=== PATIENT | male | born 1985 | race Caucasian/White ===

== ENCOUNTER 2022-06-19 04:31 | Inpatient (IN) | payer OTHER, SELFPAY ==
[2022-06-19] VITALS (86 sets, daily range): BP systolic 98–131; BP diastolic 53–93; PULSE 53–96; RESP 10–26; TEMP 36.4–37.6; O2SAT 96–100
--- NOTE | 2022-06-19 04:30 | RT.EKG_ITS ---
APPROVED REPORT Exam: Resting ECG Reason for Exam: chest pain Patient Location: E HR:68 bpm ECG Measurements Heart Rate 68 AXIS IL 151 P 40 QRSd 93 QRS 32 QT 389 T 47 QTc 413 Conclusion Sinus rhythm...normal P axis, V-rate 60- 99 Lateral infarct, acute...ST >.10mV, V5 V6 I [address] elevation, consider inferior injury...ST >0.08mV, II III aVF NSR @ 68 Normal [place] Normal Interval Not a great baseline, ST elevation is present but inconsistent due to baseline and looks more early r epolarization then infarct.
--- NOTE | 2022-06-19 04:33 | W.ED.GENAD ---
Discharge Plan Disposition Patient Disposition: [facility] INPATIENT Condition: Stable Discharge Details Clinical Impression: Acute non-ST elevation myocardial infarction (NSTEMI) Admit Date/Time: 06/19/22 07:57 Admit Provider: Khang Ng Attending Provider: Khang Ng Primary Care Provider: Jacqueline Lara ED Provider: Jay Valentine Discharge Data Discharge Date/Time-TO BE ENTERED AT DEPARTURE: 06/19/22 14:41 Medical Decision Making Patient presenting to the ED with left-sided chest pain which radiates to shoulders and back. Woke him up around 3 AM and if anything is become worse. Describes the pain as sharp. Exam remarkable for diaphoresis and appears a little pale. Lungs are clear. Heart is regular rate and rhythm without murmur and good pulses present. EKG is sinus rhythm with normal axis and intervals. Baseline a little off. Does appear to be some slight ST elevation more consistent with early repolarization and acute ME. It is also not consistent across the lead. Repeat EKG 15 minutes later essentially unchanged. Patient ordered for fluids, sublingual nitroglycerin, aspirin, ondansetron. Portable chest x-ray labs obtained. Patient improved with sublingual nitroglycerin. IV nitroglycerin drip ordered. Laboratory studies show normal white count hemoglobin. Chemistries are fine. Liver function normal. Troponin positive at 8345. Heparin started. Plavix given. Portable chest x-ray unremarkable. Patient feels much better but still has some chest pain and shoulder pain. Third EKG remains unchanged sinus rhythm with probable repolarization. Given his age, lack of risk factors, ongoing pain, positive troponin feel he is best served at a hospital with a [employer]. I have discussed this with patient and his . Unfortunately, we have called multiple hospitals including [facility], [facility], [facility], [facility], [facility], multiple [facility] all at capacity. Patient's D-dimer came back greater than 1000. CTA of the chest performed. CT negative for PE or other acute thoracic abnormality. Patient's pain at this point is now 0. He remains on nitroglycerin and heparin drip. At this point there are no [facility] tertiary care hospitals accepting NSTEMIs. I have discussed this with patient and . Given that he is currently pain-free we will plan admission here to the ICU in hopes of getting a bed at [facility] or [facility] tomorrow. Lab Data Lab results reviewed: Yes I reviewed the patient's lab results. ECG Data Attestation: I personally reviewed and interpreted this ECG (s) as follows: Prior ECG tracings: not available for review Interpretation: see EKG HPI General Mode of arrival: ambulatory. Date/Time Provider Initiated Documentation: 06/19/22 04:33. Limitations to Documentation: no limitations. Information obtained by: patient. HPI Narrative: Patient presents to the ED with left-sided chest pain that woke him up around 3 AM. He has radiation to both shoulders, upper back, neck. He describes the pain as sharp in nature but it is not pleuritic. He feels a little short of breath, lightheaded, nauseated. He is diaphoretic. Pain is worse with movement to some degree. Denies any specific trauma. Denies fever or cough. Denies leg pain or leg swelling. He has no cardiac risk factors. He has never had pain like this before. It has continued since it woke him up at 3 AM and if anything feels worse. Related Data Allergies Allergy/AdvReac Type Severity Reaction Status Date / Time No Known Allergies Allergy Unverified 06/19/22 05:52 Review of Systems Narrative: 09/12 Review of Systems completed and is negative except as stated above in HPI (Systems reviewed: Const, Eyes, ENT, Resp, CV, GI, , MSK, Skin, Neuro) PFSH All Active Problems Elevated CK (Acute) Elevated troponin I level (Acute) Chest pain (Acute) Medical History No significant past medical history Surgical History No significant past surgical history Family History Mother Atrial fibrillation Reportedly had genetic testing indicating she is a carrier for infiltrative cardiomyopathy Father No problems noted. Social History Smoking/Tobacco Use Status: Never Smoking risk assessment performed?: Yes Alcohol Intake: never Drug use: Never Substance use type: does not use Do you feel safe at home: Yes Do you feel safe in your relationship?: Yes Exam Narrative Exam Narrative: Const: WDWN male in NAD. HEENT: NC/AT. Normal facial exam. Eyes: Normal conjunctiva and sclera. Neck: Supple. Trachea midline. Lungs: Normal respiratory effort. Lungs are clear. Cor: RRR without murmur/gallop. Good radial pulses. No chest wall tenderness. GI: Soft. NT/ND. No guarding or rebound. Neuro: A+O x 3. Normal speech, mentation, gait. Cranial nerves II - XII grossly intact. No gross motor or sensory deficit. Ext: No C/C/E. No calf tenderness. Skin: Warm and diaphoretic, a little pale. Critical Care Time Critical Care Time Critical Care Time: Yes Total Critical Care Time: 60 Attestation: Upon my evaluation, this patient had a high probability of imminent or life-threatening deterioration, which required my direct attention, intervention, and personal management. I have personally provided 60 minutes of critical care time exclusive of time spent on separately billable procedures. Time includes review of laboratory data, radiology results, discussion with consultants, and monitoring for potential decompensation. Interventions were performed as documented above.
--- NOTE | 2022-06-19 04:45 | DI.RAD_ITS ---
Exam(s) XR PORTABLE CHEST AP EXAM: XR PORTABLE CHEST AP CLINICAL HISTORY: CP. TECHNIQUE: 2D digital imaging was performed. COMPARISON: No exams were available for comparison FINDINGS: Single AP portable view. Heart size is upper normal. The mediastinum is not widened. Lungs are clear. No infiltrates nor obvious pleural effusions. IMPRESSION: No acute pulmonary findings on this single AP portable view of the chest. DATA REPOSITORY: RADIATION DOSE DELIVERED: All CT scans at this facility use at least one of these dose optimization techniques: automated exposure control; mA and/or kV adjustment per patient size (includes targeted e xams where dose is matched to clinical indication); or iterative reconstruction.
--- NOTE | 2022-06-19 04:45 | RT.EKG_ITS ---
APPROVED REPORT Exam: Resting ECG Reason for Exam: CHEST PAIN Patient Location: E HR:73 bpm ECG Measurements Heart Rate 73 AXIS DE 155 P 28 QRSd 105 QRS 12 QT 381 T 36 QTc 421 Conclusion Sinus rhythm...normal P axis, V-rate 60- 99 ST elev, probable normal early repol pattern...ST elevation, age<55 NSR @ 73 Normal [place] Normal Interval Again not great baseline and inconsistent mild ST elevations present, consistent with early repolariz ation and no significant changes compared to one 15 minutes earlier
[2022-06-19] MEDS: Aspirin 81 MG CHEW 324 MG CH (04:57)
[2022-06-19] MEDS: nitroGLYcerin 0.4 MG TAB (04:58)
[2022-06-19 05:10] LABS: Abs Immature Grans 0.02 10^3/uL (0.0-0.06); Absolute Basophil Count 0.06 10^3/uL (0.0-0.2); Absolute Eosinophil Count 0.32 10^3/uL (0.0-0.7); Absolute Lymphocyte Count 1.36 10^3/uL (1.2-3.4); Absolute Monocyte Count 0.99 10^3/uL (0.1-0.8); Absolute Neutrophil Count 6.69 10^3/uL (1.2-6.7); Basophils % 0.6; Eosinophils % 3.4; HCT 47.9 % (40.0-50.0); HGB 16.2 g/dL (13.5-17.5); Immature Grans % 0.2; Lymphocytes % 14.4; MCH 27.7 pg (27.0-33.0); MCHC 33.8 % (32.0-36.0); MCV 82 fL (80-95); MPV 10.1 fL (8.0-11.0); Monocytes % 10.5; Neutrophils % 70.9; Platelet Count 147 10^3/uL (130-400); RBC 5.84 10^6/uL (4.36-5.78); RDW 12.6 % (11.8-14.1); RDW-SD 37.6 fL; WBC 9.44 10^3/uL (4.4-10.8)
[2022-06-19 05:28] LABS: PTT Activated 27.8 sec (21.0-27.5); Prothrombin Time 9.9 sec (9.3-11.0)
[2022-06-19 05:35] LABS: ALT 62 U/L (16-63); AST 53 U/L (15-37); Alkaline Phosphatase 73 U/L (46-116); Anion Gap 8.7 mmol/L (3-11); BUN 14 mg/dL (7-18); Bilirubin, Total 0.9 mg/dL (0.2-1.0); CO2 26.3 mmol/L (21.0-32.0); Calcium 8.6 mg/dL (8.5-10.1); Chloride 104 mmol/L (98-107); Glucose 126 mg/dL (74-106); Magnesium 1.9 mg/dL (1.8-2.4); Potassium 3.9 mmol/L (3.5-5.1); Sodium 139 mmol/L (136-145); Total Protein 7.2 g/dL (6.4-8.2)
[2022-06-19 05:36] LABS: Troponin I 8345 ng/L (<or=60)
[2022-06-19] MEDS: nitroGLYcerin in D5W 50 MG/250 ML BTL IV (05:42)
--- NOTE | 2022-06-19 05:45 | RT.EKG_ITS ---
APPROVED REPORT Exam: Resting ECG Reason for Exam: chest pain Patient Location: E HR:70 bpm ECG Measurements Heart Rate 70 AXIS NM 151 P 28 QRSd 105 QRS 3 QT 394 T 17 QTc 427 Conclusion Sinus rhythm...normal P axis, V-rate 60- 99 Normal axis/interval. Appropriate baseline and no evidence of ST changes
--- NOTE | 2022-06-19 05:49 | DI.VRAD_ITS ---
PROCEDURE INFORMATION: Exam: XR Chest Exam date and time: 06/19/2022 5:12 AM Age: 36 years old Clinical indication: Chest wall pain; Additional info: Chest pain TECHNIQUE: Imaging protocol: Radiologic exam of the chest. Views: 1 view. COMPARISON: No relevant prior studies available. FINDINGS: Lungs: Mild chronic interstitial prominence. No consolidation. Pleural spaces: Unremarkable. No pleural effusion. No pneumothorax. Heart/Mediastinum: Unremarkable. No cardiomegaly. Bones/joints: Unremarkable. IMPRESSION: No acute findings. Dictated and Authenticated by: Lionel Chen MD. Ordering:ROEL Thompson MD
[2022-06-19] MEDS: nitroGLYcerin 0.4 MG TAB SL (05:54)
[2022-06-19] MEDS: Clopidogrel 300 MG TAB PO (05:58)
[2022-06-19] MEDS: Ondansetron 4 MG/2 ML VIAL IVP (05:58)
--- NOTE | 2022-06-19 06:30 | DI.CT_ITS ---
Exam(s) CT CHEST PE CTA EXAM: CT CHEST PE CTA CLINICAL HISTORY: CP + DDIMER. TECHNIQUE: Imaging Protocol: CT angiography of the chest was performed using pulmonary embolus brandi col. Multi planar reconstructions were performed. CONTRAST MATERIAL: Intravenous: Omnipaque 350 Contrast volume: 100 cc COMPARISON: No exams were available for comparison FINDINGS: CHEST: PULMONARY ARTERIES: There are no intraluminal filling defects to suggest acute pulmonary emboli. LUNGS: There are no infiltrates nor evidence of pulmonary infarction.. There are no pleural effusions . MEDIASTINUM: There is no hilar nor mediastinal adenopathy. Density in the anterior mediastinum is con sistent with residual thymic tissue. CARDIAC: Heart size is upper normal. There is no pericardial effusion.Caliber of the thoracic aorta is within normal limits. There is no significant shift of the interventricular septum. PARTIALLY VISUALIZED UPPERMOST ABDOMEN: No obvious findings OSSEOUS: No significant osseous lesions.. IMPRESSION: 1. No evidence of acute pulmonary emboli. No evidence of pulmonary infarction.No pleural effusions. 2. No confluent infiltrates. RADIATION DOSE DELIVERED: 505.11mGy.cm Total DLP DATA REPOSITORY: All CT scans at this facility are submitted to the National Radiology Data Registry (NRDR) Dose Index Registry (DIR) with the [employer] (ACR). RADIATION OPTIMIZATION: All CT scans at this facility use at least one of these dose optimization te chniques: automated exposure control; mA and/or kV adjustment per patient size (includes targeted exa ms where dose is matched to clinical indication); or iterative reconstruction.
[2022-06-19 06:43] LABS: D-Dimer 1212 ng/mlFEU (<500)
[2022-06-19 07:08] LABS: Source Nasal/Nares
--- NOTE | 2022-06-19 07:15 | PDOC.ERCMPRO ---
- If Service Date Differs Date of service: 06/19/22 Time of Service: 07:15 Care Management Progress Note SBIRT screen negative. No alcohol, nicotine, substance use or mental health symptoms reported.
--- NOTE | 2022-06-19 07:16 | DI.VRAD_ITS ---
PROCEDURE INFORMATION: Exam: CTA Chest With Contrast Exam date and time: 06/19/2022 6:19 AM Age: 36 years old Clinical indication: Chest wall pain; Additional info: Cp +ddimer TECHNIQUE: Imaging protocol: Computed tomographic angiography of the chest with contrast. 3D rendering (Not supervised by radiologist): MIP and/or 3D reconstructed images were created by the technologist. Radiation optimization: All CT scans at this facility use at least one of these dose optimization techniques: automated exposure control; mA and/or kV adjustment per patient size (includes targeted exams where dose is matched to clinical indication); or iterative reconstruction. Contrast material: OMNI 350; Contrast volume: 100 ml; Contrast route: INTRAVENOUS (IV); COMPARISON: XR PORTABLE CHEST AP 06/19/2022 5:12 AM FINDINGS: Pulmonary arteries: No filling defects in the central, lobar, or proximal segmental pulmonary arteries to suggest pulmonary emboli. Normal caliber main pulmonary artery. Aorta: Normal in caliber. Lungs: There are dependent hypoventilatory changes in both lower lobes. The lungs are otherwise clear and well aerated, without consolidation or mass. The Pleural spaces: No pleural effusion or pneumothorax. Heart: Heart size is normal. No coronary artery calcifications. No pericardial effusion. Mediastinal space: Small amount of residual thymic tissue in the anterior/superior mediastinum, nonspecific. Lymph nodes: Unremarkable. No pathologically enlarged mediastinal, hilar, or axillary lymph nodes. Bones/joints: Unremarkable. No fractures or suspicious osseous lesions. Soft tissues: Unremarkable. Other findings: Visualized upper abdominal structures demonstrate no acute or suspicious abnormality. IMPRESSION: No acute abnormality in the chest. No evidence of pulmonary emboli. Dictated and Authenticated by: Lucille Coffman MD. Ordering:ROEL Thompson MD
--- NOTE | 2022-06-19 07:34 | NUR.NOTE ---
Pt. states to [employer] that string in restroom for call palumbo is too long and someone could hang themselves.Nursing Note:
[2022-06-19 08:10] LABS: COVID-19 PCR Negative (Negative)
[2022-06-19 08:17] LABS: Troponin I 17707 ng/L (<or=60)
--- NOTE | 2022-06-19 09:56 | W.PM.HP.N ---
Date of service: 06/19/22 Time of Service: 09:57 Assessment and Plan Assessment and plan (1) Chest pain: Status: Acute Assessment and plan: Patient's chest pain is atypical and that he has had no exertional component to his chest pain. The acute onset of chest tightness along with the left shoulder discomfort both which were relieved by nitroglycerin have been associated with a significantly elevated troponin I level along with EKG changes that either represent acute pericarditis versus repolarization abnormalities. His EKGs do not look typical for an ST elevation FL and that its diffuse upward sloping ST segments and there is been no progression of his EKGs. What is interesting is the latest EKG taken at 10:59 AM looks totally normal with no repolarization abnormalities whatsoever. I have discussed his case with our local hopper attendant Dr. Lupe Maurer who agrees that the doubling of his troponin I level from 8000-17,000 is significant and the patient deserves a cardiac catheterization. It is hard to piece together the events of the weekend in which she became significantly dehydrated associated with severe muscle aches and headaches and nausea but I suppose he probably became dehydrated enough that he had rhabdomyolysis which could have led to the significantly elevated troponin levels. However his CK levels are only minimally elevated at present but may be on a downward trend. The other possibility raised is that he may have had some atretic or anomolous coronary branch that became occluded d/t hyperviscocity from his dehydratrion and led to and NSTEMI. I favor a diagnosis of an epimyopericarditis or a myocarditis. [facility] in [facility] called to inquire about the patient as Dr. Jay Valentine had reached out to them for transfer to their center. I spoke with Liseth Franklin, nurse practitioner for the cardiology service at [facility]. After she reviewed the case with me she indicated that they would be willing to accept the patient to the service of Dr. Jessica Casanova pending bed availability. She indicated that we should still look at local resources to see if any beds become available closer to home. I did indicate to her that Dr. Kyle already reached out to her local tertiary care centers including [facility] and [facility] neither which were excepting transfers. I updated the patient and his regarding his acceptance at [facility] but also told him that they currently do not have a bed available but will let us know when 1 becomes available. Critical care time spent interviewing and examining the patient, reviewing studies, discussing case with patient's nurse and consulting physicians was 120 minutes (2) Elevated troponin I level: Status: Acute Assessment and plan: As above. (3) Acute non-ST elevation myocardial infarction (NSTEMI): Status: Suspected Assessment and plan: As above, cont. ASA, Plavix, heparin; wean NTG gtt as tolerated and switch to NTG paste. Echo was done and preliminary looks normal; no RWMA (4) Elevated CK: Status: Acute Assessment and plan: probably residual from rhabdomyolysis. History of Present Illness History of Present Illness Chief Complaint: Chest pressure, left arm pain Narrative: This 36-year-old male non-smoker with no chronic medical issues presented emergency department with acute onset of chest tightness and left arm pain and left shoulder pain that awoke him around 3 AM. He took a couple of Advil tablets and try to get back to sleep but when he could not sleep he presented to the emergency department. Time of arrival was 434 this morning. Patient was seen by Dr. Jay Valentine, ED attending who performed a work-up including serial EKGs lab work including serum troponin I levels as well as CT scan and chest x-ray. Chest x-ray showed no acute pulmonary pathology. CT of the chest showed no evidence of pulmonary emboli and no dissection no infiltrates or effusions. Initial EKG was taken at 4:38 AM and showed sinus rhythm rate of 68 bpm normal MS interval 151 ms normal QT interval 389 with normal P wave, QRS, T wave axis. He had peaked T waves across the precordial leads with upward sloping ST segments consistent with early repolarization abnormality. However the computer reading read lateral acute infarct ST elevation consider inferior injury. Upward sloping ST segments appear to be not only across the precordial leads but also across the inferior leads. Second ECG was obtained at 4:53 AM and again showed similar upward sloping ST elevation consistent with early repolarization changes. Third ECG taken at 5:56 AM again showed peaked T waves and upward sloping ST segments although the ST elevation appear to be less prominent. Routine labs including CBC was unremarkable and chemistry profile was remarkable for mildly elevated AST and a glucose of 126 but otherwise normal electrolytes normal renal function. Serial troponin I levels were elevated initially 1 at 4:50 AM was 8300. Repeat 1 now at 7:51 AM is 17,700. Patient was treated emergency department by Dr. Valentine who loaded him with Plavix 300 mg and aspirin 324 mg. He gave him nitroglycerin 0.4 mg which gave partial but incomplete relief and he started on nitroglycerin drip at 10 mcg/min and the patient has been pain-free. Patient was started on a heparin drip at [address] Valentine reports he tried reaching out to area tertiary care centers and reports that none of them would even give him a hopper attendant to discuss potential transfer. They did reach out to [facility], [facility], [facility], [facility], [facility], [facility] all which were at capacity. After you interviewing the patient I received additional information that prior to last night's episode of chest discomfort patient had been working over the weekend building a shed and was out in the heat for over 7 hours on Thursday and became exhausted. On Thursday he was feeling confused had diffuse muscle aches in his limbs and was complaining of headache. He realized by then that he become dehydrated and attempt to rehydrate himself. He slept most of Thursday. He continued to rehydrate over Thursday and Thursday and started feeling better. On Thursday he was feeling well enough that he took some of the materials from his worksite to the local dump. As far as coronary risk factors he denies any smoking history and denies any known history of hypertension or diabetes mellitus or hyperlipidemia. There is no family history of premature coronary artery disease although interestingly his mother who is 64 years old has a history of atrial fibrillation and was tested genetically for some kind of myocardial infiltrative process (? Amyloid) his father is retired and 64 years old and healthy. He has 2 siblings including an older sister is 37 and younger sister is 33 both of which are healthy. Patient does not use any recreational drugs such as amphetamines or cocaine. He does not take any controlled substances and only has used occasional ibuprofen or Advil for aches and pains. He did take a couple of Advil last night when he started having the shoulder and chest discomfort. Review of Systems Constitutional Constitutional: Denies chills and Denies fever(s) Cardiovascular Cardiovascular: Reports system reviewed and no additional complaints, except as documented Respiratory Respiratory: Reports system reviewed and no additional complaints, except as documented PFSH All Active Problems (Updated 06/19/22 @ 12:23 by Khang Ng MD) Elevated CK (Acute) Elevated troponin I level (Acute) Chest pain (Acute) Medical History No significant past medical history Surgical History No significant past surgical history Family History (Updated 06/19/22 @ 10:44 by Khang Ng MD) Mother Atrial fibrillation Reportedly had genetic testing indicating she is a carrier for infiltrative cardiomyopathy Father No problems noted. Social History Smoking/Tobacco Use Status: Never Smoking risk assessment performed?: Yes Alcohol Intake: never Drug use: Never Substance use type: does not use Do you feel safe at home: Yes Do you feel safe in your relationship?: Yes Meds Allergies and Home Medications Allergies Allergy/AdvReac Type Severity Reaction Status Date / Time No Known Allergies Allergy Unverified 06/19/22 05:52 Exam Narrative Exam Narrative: Alert and oriented x4 HEENT: Atraumatic normocephalic, pupils equally round reactive to light and accommodation, extraocular motion intact, TMs intact, nares moist and patent without exudate or bleeding, oropharynx noninjected without exudate, teeth in good repair Neck: Supple, nontender, without thyromegaly or lymphadenopathy or JVD. Normal carotid pulses Lungs: Clear to auscultation and percussion Heart: Regular rate and rhythm without murmur rub or gallop. Normal apical impulse Abdomen: Nondistended, normal bowel sounds, nontender to palpation or percussion, no organomegaly, no bruits, no palpable masses Genitalia and rectal exam: Deferred Extremities: Normal range of motion with normal strength. No peripheral cyanosis or edema. Normal pulses Neurologic: Cranial nerves II through XII grossly within normal limits. Normal strength and sensation over the face trunk and extremities. Results Imaging Chest x-ray: image reviewed CT scan - chest: report reviewed EKG: image reviewed Labs Result diagrams: 06/19/22 04:50 06/19/22 04:50 Labs: Laboratory Results - last 24 hr 06/19/22 06/19/22 06/19/22 04:50 04:50 04:50 WBC 9.44 RBC 5.84 H Hgb 16.2 Hct 47.9 MCV 82 MCH 27.7 MCHC 33.8 RDW 12.6 Plt Count 147 MPV 10.1 Immature Gran % 0.2 Neutrophils % 70.9 Lymphocytes % 14.4 Monocytes % 10.5 Eosinophils % 3.4 Basophils % 0.6 Nucleated RBC % 0.0 Absolute Neutrophils 6.69 Absolute Lymphocytes 1.36 Absolute Monocytes 0.99 H Absolute Eosinophils 0.32 Absolute Basophils 0.06 PT 9.9 INR 1.0 APTT 27.8 H D-Dimer 1212 H Sodium 139 Potassium 3.9 Chloride 104 Carbon Dioxide 26.3 Anion Gap 8.7 BUN 14 Creatinine 1.0 Estimated GFR/1.73 m2 >= 60.00 Glucose 126 H Calcium 8.6 Magnesium 1.9 Total Bilirubin 0.9 AST 53 H ALT 62 Alkaline Phosphatase 73 Troponin I 8345 H* Total Protein 7.2 Albumin 4.0 COVID-19 Source SARS-CoV-2 (PCR) 06/19/22 06/19/22 06:45 07:51 WBC RBC Hgb Hct MCV MCH MCHC RDW Plt Count MPV Immature Gran % Neutrophils % Lymphocytes % Monocytes % Eosinophils % Basophils % Nucleated RBC % Absolute Neutrophils Absolute Lymphocytes Absolute Monocytes Absolute Eosinophils Absolute Basophils PT INR APTT D-Dimer Sodium Potassium Chloride Carbon Dioxide Anion Gap BUN Creatinine Estimated GFR/1.73 m2 Glucose Calcium Magnesium Total Bilirubin AST ALT Alkaline Phosphatase Troponin I 16612 H* Total Protein Albumin COVID-19 Source Nasal/Nares SARS-CoV-2 (PCR) Negative Last Vital Signs Temp 36.4 C L 06/19/22 04:34 Pulse 69 06/19/22 09:15 Resp 15 06/19/22 09:15 BP 105/56 L 06/19/22 09:15 Pulse Ox 98 06/19/22 09:15
--- NOTE | 2022-06-19 10:12 | DI.US_ITS ---
APPROVED REPORT EXAM: Comprehensive 2D, Doppler, and color-flow Echocardiogram Patient Location: In-Patient Room/Bed: [id number] Certified Substance Abuse Counselor: Padma Kumar RDCS (AE) Indications: IL Other Information Study Quality: Adequate. Technically limited study due to inability to position patient exam done sup [facility] bedside icu. Conclusion Normal left ventricular wall thickness and chamber size. Estimated ejection fraction is 55 to 60%. There are no segmental wall motion abnormalities Normal right ventricular size and systolic function Both atria are normal in size Trileaflet aortic valve without stenosis or regurgitation Structurally normal mitral valve, mild regurgitation Normal tricuspid valve with trace regurgitation. Estimated right ventricular systolic pressure is 24 mmHg Wall motion Left Ventricle The left ventricle is normal size. The left ventricular systolic function is normal. The left ventric ular ejection fraction is within the normal range. There is normal left ventricular wall thickness. T here is normal LV segmental wall motion. There is no ventricular septal defect visualized. LVEF is 58 %. Right Ventricle The right ventricle is normal size. The right ventricular systolic function is normal. The RVSP is 24 .1 mmHg. Atria The left atrium size is normal. The right atrium size is normal. The interatrial septum is intact wit h no evidence for an atrial septal defect. Aortic Valve The aortic valve is normal in structure. Aortic valve is trileaflet. There is no aortic valvular sten osis. No aortic regurgitation is present. Mitral Valve The mitral valve is normal in structure. No evidence of mitral valve stenosis. Mild mitral regurgitat ion. Tricuspid Valve The tricuspid valve is normal in structure. There is no tricuspid valve stenosis. Trace tricuspid reg urgitation. Pulmonic Valve The pulmonary valve is normal in structure. There is no pulmonic valvular stenosis. There is no pulmo amparo valvular regurgitation. Great Vessels The aortic root is normal in size. The ascending aorta is normal in size. Aortic arch is normal in ca liber. IVC is normal in size and collapses >50% with inspiration. Pericardium There is no pericardial effusion. 2D Dimensions IVSD d PLAX 1.03 cm M: 0.6-1.2 LV Vol A2C d MOD 146.5 mL LVPW d PLAX 1.03 cm M: 0.6 - 1.2 LV Vol A4C d MOD 183.8 mL LVID d PLAX 5.68 cm M: 4.2 - 5.8 LA vol/ BSA A4C s A-L 25.4 mL/m2 LVDs 3.95 cm M: 2.5 - 4.0 LA Area A4C s MOD 20.37 cm2 Ao Root d 3.38 cm M: 3.1 - 3.7 LV EF A4C MOD 58.3 % RA Area A4C 18.89 cm2 LV EF A2C MOD 58.5 % RA Vol/ BSA A4C s A-L 25.5 mL/m2 LV EF Biplane MOD 56.1 % Ao Asc Diam d 3.18 cm M: 2.6 - 3.4 SV 92.76 mL LV EF Teichholz 57.2 % SV Index 39.40 mL/m2 LVEF (Joe's) 56.06 % M: 52 - 72 LV Volume 117.87 mL M: 62 - 150 LV Volume Index 50.15 mL/m2 M: 34 - 74 LV Vol Biplane MOD 165.5 mL FS 30.40 % M-Mode TAPSE 2.11 cm (M/F) >1.7 LV Diastology MV E' medial 0.103 (>0.07 m/s) E/A Ratio 1.4 LV E/e MED 6.15 (<14) MV E Vmax 0.64 (0.4-1.3 m/s) MV E' lateral 0.113 (>0.1 m/s) MV A Vmax 0.45 (0.4-1.3 m/s) LV E/e LAT 5.65 (<14) MV E/A Ratio 1.33 MV E/E' medial 6.20 MV E/E' lateral 5.66 Aortic Valve LVOT Area 3.59 cm2 AoV Area Vmax 2.83 cm2 LVOT Vmax 0.90 m/s AoV Area/ BSA (Vmax) 1.20 cm2/m2 LVOT Mean Yohannes. 0.58 m/s ARTEMIO Mean Yohannes. 2.51 cm2 LVOT Peak Grad 3.3 mmHg ARTEMIO Mean Yohannes. Index 1.06 cm2/m2 LVOT Mean Grad 1.6 mmHg LVOT VTI 0.226 m LVOT Diam s 2.10 cm AoV Vmax 1.14 m/s Velocity Ratio 0.78 AoV Mean Yohannes. 0.83 m/s AoV Peak Grad 5.2 mmHg LVOT SV 81.36 mL AoV Mean Grad 3.0 mmHg AoV VTI 0.277 m AoV Area VTI 2.94 cm2 AoV Area/ BSA (VTI) 1.25 cm/m2 Mitral Valve MV DT 164 (160-240 msec) MV PHT 47 msec MV Area PHT 4.63 cm2 MV VTI 0.276 m MV Area VTI 2.95 (4.0-6.0 cm2) Pulmonary Valve PV Vmax 0.93 (0.5-1.5 m/s) RVOT Peak Gr. 1.49 mmHg PV Peak Grad 3.5 mmHg RVOT Mean Gr. 0.70 mmHg PV Mean Grad 1.6 mmHg RVOT VTI 0.139 m PV VTI 0.196 m RVOT Vmax 0.61 m/s Tricuspid Valve TR Peak Grad 21.1 mmHg TR Vmax 2.30 m/s RA Pressure 3.00 mmHg RVSP (TR) 24.1 mmHg
--- NOTE | 2022-06-19 10:45 | RT.EKG_ITS ---
APPROVED REPORT Exam: Resting ECG Reason for Exam: INCREASED TROP Patient Location: I HR:59 bpm ECG Measurements Heart Rate 59 AXIS WV 159 P 38 QRSd 110 QRS 14 QT 442 T 27 QTc 438 Conclusion Sinus rhythm...normal P axis, V-rate 50- 99 Normal Electrocardiogram
[2022-06-19 11:03] LABS: Creatine Kinase 770 U/L (39-308); NT-proBNP 1275 pg/mL (<300)
[2022-06-19 11:05] LABS: Troponin I 18124 ng/L (<or=60)
[2022-06-19 12:58] LABS: PTT Activated 33.6 sec (21.0-27.5)
--- NOTE | 2022-06-19 13:41 | CCONE_ITS ---
Date of service: 06/19/22 Time of Service: 13:41 Assessment and Plan Assessment and plan (1) Elevated troponin I level: Status: Acute Assessment and plan: Patient has a markedly elevated troponin, well beyond what might be suspected with an acute myocardial infarction. His EKGs are within normal limits. His echo was normal. Given his history of prolonged physical exertion and suspected dehydration, I think rhabdomyolysis would be the most likely etiology of his enzyme elevation. That being said, he still requires evaluation to ensure that he does not have underlying coronary artery disease. Transfer for cardiac catheterization is appropriate. Follow-up depends on results (2) Elevated CK: Status: Acute History of Present Illness History of Present Illness Chief Complaint: Left shoulder and arm pain Narrative: This is a 36-year-old man who presented to the hospital because of left shoulder and arm pain which had awakened him from sleep. He took a couple of Advil but because of persistent symptoms came to the emergency room. He was found to have a markedly elevated troponin in excess of 8000. He was treated for suspected acute coronary syndrome with heparin intravenous nitroglycerin and became pain- free. His initial electrocardiogram had some degree of respiratory variation suggesting minimal ST elevation in V5 and V6. Subsequent electrocardiograms were normal. He had an echocardiogram performed today which also was within normal limits, no valvular disease normal chamber sizes, normal wall motion Troponins have continued to rise, now greater than 18,000. His CPK was obtained it is 770 Patient has no past history of cardiac illness. He has no specific risk factors for coronary disease. He is a non-smoker, not hypertensive, no known dyslipidemia. Family history is notable for mother with atrial fibrillation and some type of possible infiltrative cardiomyopathy genetic predisposition. Additional history was notable for the fact that the patient was working very hard outdoors over the weekend. He spent more than 7 hours continuously exerting himself on Thursday, Thursday felt poorly and suspected dehydration. He rehydrated and took it a bit easier and had been feeling better until his acute symptoms prompting ER evaluation The case has been discussed extensively with Dr. Short. The patient is in the process of being transferred to [facility] for further evaluation. Currently he is comfortable Review of Systems Cardiovascular Cardiovascular: Reports as per [facility] All Active Problems Elevated CK (Acute) Elevated troponin I level (Acute) Chest pain (Acute) Medical History No significant past medical history Surgical History No significant past surgical history Family History Mother Atrial fibrillation Reportedly had genetic testing indicating she is a carrier for infiltrative cardiomyopathy Father No problems noted. Social History Smoking/Tobacco Use Status: Never Smoking risk assessment performed?: Yes Alcohol Intake: never Drug use: Never Substance use type: does not use Do you feel safe at home: Yes Do you feel safe in your relationship?: Yes Exam Narrative Exam Narrative: Well-developed well-nourished lying in bed. The patient was not examined Results Last Vital Signs Temp 36.8 C 06/19/22 12:10 Pulse 66 06/19/22 12:10 Resp 16 06/19/22 12:10 BP 102/54 L 06/19/22 12:10 Pulse Ox 100 06/19/22 12:10 Labs Result diagrams: 06/19/22 04:50 06/19/22 04:50 Labs: Laboratory Results - last 24 hr 06/19/22 06/19/22 06/19/22 04:50 04:50 04:50 WBC 9.44 RBC 5.84 H Hgb 16.2 Hct 47.9 MCV 82 MCH 27.7 MCHC 33.8 RDW 12.6 Plt Count 147 MPV 10.1 Immature Gran % 0.2 Neutrophils % 70.9 Lymphocytes % 14.4 Monocytes % 10.5 Eosinophils % 3.4 Basophils % 0.6 Nucleated RBC % 0.0 Absolute Neutrophils 6.69 Absolute Lymphocytes 1.36 Absolute Monocytes 0.99 H Absolute Eosinophils 0.32 Absolute Basophils 0.06 PT 9.9 INR 1.0 APTT 27.8 H D-Dimer 1212 H Sodium 139 Potassium 3.9 Chloride 104 Carbon Dioxide 26.3 Anion Gap 8.7 BUN 14 Creatinine 1.0 Estimated GFR/1.73 m2 >= 60.00 Glucose 126 H Calcium 8.6 Magnesium 1.9 Total Bilirubin 0.9 AST 53 H ALT 62 Alkaline Phosphatase 73 Creatine Kinase Troponin I 8345 H* NT-Pro-B Natriuret Pep Total Protein 7.2 Albumin 4.0 COVID-19 Source SARS-CoV-2 (PCR) 06/19/22 06/19/22 06/19/22 06:45 07:51 10:30 WBC RBC Hgb Hct MCV MCH MCHC RDW Plt Count MPV Immature Gran % Neutrophils % Lymphocytes % Monocytes % Eosinophils % Basophils % Nucleated RBC % Absolute Neutrophils Absolute Lymphocytes Absolute Monocytes Absolute Eosinophils Absolute Basophils PT INR APTT D-Dimer Sodium Potassium Chloride Carbon Dioxide Anion Gap BUN Creatinine Estimated GFR/1.73 m2 Glucose Calcium Magnesium Total Bilirubin AST ALT Alkaline Phosphatase Creatine Kinase [place] I [address] H* NT-Pro-B Natriuret Pep Total Protein Albumin COVID-19 Source Nasal/Nares SARS-CoV-2 (PCR) Negative 06/19/22 06/19/22 10:30 12:28 WBC RBC Hgb Hct MCV MCH MCHC RDW Plt Count MPV Immature Gran % Neutrophils % Lymphocytes % Monocytes % Eosinophils % Basophils % Nucleated RBC % Absolute Neutrophils Absolute Lymphocytes Absolute Monocytes Absolute Eosinophils Absolute Basophils PT INR APTT 33.6 H D-Dimer Sodium Potassium Chloride Carbon Dioxide Anion Gap BUN Creatinine Estimated GFR/1.73 m2 Glucose Calcium Magnesium Total Bilirubin AST ALT Alkaline Phosphatase Creatine Kinase 770 H Troponin I [address]00 H* NT-Pro-B Natriuret Pep 1275 H Total Protein Albumin COVID-19 Source SARS-CoV-2 (PCR)
[2022-06-19 14:40] LABS: ESR < 1 mm/hr (0-15)
[2022-06-19 14:40] LABS: C-Reactive Protein 2.13 mg/dL (0.0-0.3); Creatine Kinase 703 U/L (39-308)
[2022-06-19 14:46] LABS: Troponin I 10227 ng/L (<or=60)
--- NOTE | 2022-06-19 15:16 | PHA.REVIEW ---
Pharmacy Admission Review - Admission Clinical Review (Last Reviewed 06/19/22 @ 13:45 by Lupe Maurer MD) Elevated CK (Acute) Elevated troponin I level (Acute) Chest pain (Acute) No Known Allergies Allergy (Unverified 06/19/22 05:52) Resuscitation Status Full Code Height 6 ft 3 in Weight 107.5 kg - Renal Dosing Renal Dosing: BUN 14 mg/dL (7-18) 06/19/22 04:50 Creatinine 1.0 mg/dL (0.70-1.30) 06/19/22 04:50 Medications needing adjustments: N/A (crcl = 123) - Anticoagulation Anticoagulation: Hgb 16.2 g/dL (13.5-17.5) 06/19/22 04:50 Hct 47.9 % (40.0-50.0) 06/19/22 04:50 Plt Count 147 10^3/uL (130-400) 06/19/22 04:50 INR 1.0 (0.9-1.1) 06/19/22 04:50 Creatinine 1.0 mg/dL (0.70-1.30) 06/19/22 04:50 DVT Prophylaxis: Reviewed Medications: Heparin Therapeutic Anticoagulation: Reviewed Medications: Heparin (on heparin drip for suspected NSTEMI. ptt @ 1228 = 33.6 (increased from 1000 units/hr to 1200 units/hr)) - Opiate Usage Evaluate Pain Scale/Pains Meds: N/A - Relevant Labs ESR < 1 mm/hr (0-15) 06/19/22 14:13 Sodium 139 mmol/L (136-145) 06/19/22 04:50 Potassium 3.9 mmol/L (3.5-5.1) 06/19/22 04:50 Chloride 104 mmol/L (98-107) 06/19/22 04:50 Magnesium 1.9 mg/dL (1.8-2.4) 06/19/22 04:50 C-Reactive Protein 2.13 mg/dL (0.0-0.3) H 06/19/22 14:10 Electrolytes, C-Reactive P, ESR: Reviewed - DM Control DM Control: Glucose 126 mg/dL (74-106) H 06/19/22 04:50 Insulin Dosing: N/A - Heart Failure/VA Heart Failure/VA: [place] 35150 ng/L (<or=60) H* 06/19/22 14:10 NT-Pro-B Natriuret Pep 1275 pg/mL (<300) H 06/19/22 10:30 EF%, TORIBIO's, B-Blockers, Diuretics: Reviewed - BP Control BP Control: Blood Pressure [Right Arm] 102/54 Blood Pressure [Right Arm] 106/61 Blood Pressure 102/54 Blood Pressure 107/59 Blood Pressure 102/57 Blood Pressure 106/61 Blood Pressure 105/56 Blood Pressure 101/60 Blood Pressure 100/61 Blood Pressure 104/60 Blood Pressure 100/57 Blood Pressure 101/59 Blood Pressure 104/53 Blood Pressure 107/62 Blood Pressure 114/92 Blood Pressure 104/65 Blood Pressure 106/66 Blood Pressure 109/61 Blood Pressure 101/64 Blood Pressure 101/64 Blood Pressure 98/63 Blood Pressure 106/62 Blood Pressure 110/66 Blood Pressure 110/66 Blood Pressure 108/68 Blood Pressure 111/63 Blood Pressure 114/71 Blood Pressure 131/93 Blood Pressure 123/74 Blood Pressure 115/78 If elevated: N/A - Qtc Review If Elevated: N/A - IV to PO Switch IV Medications: N/A - Home Meds Home Med List reviewed: N/A - Current meds Current Medication Order Review: Reviewed
[2022-06-19] MEDS: Acetaminophen 325 MG TAB PO (16:19)
[2022-06-19 16:20] LABS: Bilirubin Negative (Negative); Blood Negative (Negative); Clarity Clear (Clear); Glucose Negative (Negative); Ketones Negative (Negative); Leukocyte Esterase Negative (Negative); Nitrite Negative (Negative); Urobilinogen 0.2 EU/dL (Up TO 0.2); pH 6.5 (5-8)
--- NOTE | 2022-06-21 18:06 | DSE_ITS ---
Date of service: 06/19/22 Time of Service: 18:00 DS: Diagnosis Discharge Diagnosis (1) Elevated troponin I level: Status: Acute (2) Elevated CK: Status: Acute Discharge Plan Disposition Patient Disposition: [facility] Condition: Stable Discharge Details Reason For Visit: NSTEMI Admit Date/Time: 06/19/22 07:57 Admit Provider: Khang Ng Attending Provider: Khang Ng Primary Care Provider: Jacqueline Lara Hospital Course Hospital Course: 36-year-old male non-smoker with no chronic medical issues presented with acute onset chest tightness and left arm pain and shoulder pain that awoke him at 3 AM. He taken a couple Advil tablets try to get back to sleep when his chest started hurting he presents emergency department around 4:34 AM on 06/19/2022. ECG was remarkable for repolarization abnormalities. Chest x-ray showed no acute pathology CTA of the chest was negative for PE or dissection or pneumonia. Patient was given a couple nitroglycerin tablets and then placed on nitroglycerin drip at which point he was seen complete relief. Serial ECGs were obtained. Serial troponin levels were checked and found to be elevated with initial troponin level of 8300 and a couple hours later it went to 17,000 and finally peaked at 18,006 hours after admission. It finally declined late in the afternoon on 06/19/2022 and was down to 10,000. Patient was given dual antiplatelet therapy including aspirin and Plavix. Multiple tertiary care centers were called and none had bed availability for transfer and because it was considered in NSTEMI they did not feel the need for urgent transfer. When I took over his care I started making further calls to tertiary care centers including [facility] and also [facility] in [place]. [facility] actually reach out to me in response to the initial call that was placed by our emergency department.[facility] graciously accepted the patient but could not offer a bed immediately but put him on a list for earliest transfer possible. I consulted with our local certified adaptive physical educator Dr. Lupe Maurer who reviewed the case as well as his echocardiogram and indicated that his echocardiogram was normal. She felt that this may be musculoskeletal and not cardiac in origin. This is based on the fact that his chest pain episode had been preceded by a weekend of extreme exertion out in the heat becoming dehydrated. That had been associated over the weekend prior to admission with severe muscle aches and headaches and nausea and vomiting. Furthermore when I checked a CK level was found to be elevated at 770. Echocardiogram was performed and read by Dr. Maurer as being normal. His LVEF is 55 to 60% with no wall motion abnormalities and no valvular abnormalities. I reached out to [facility] and spoke with Dr. Lowe one of the cardiology fellows at [facility] and after review of the case they agreed except the patient and put him on a list for earliest transfer to the service of Dr. Jose Carlos Hamlin. Later in the early evening hours on 06/19/2022 patient was transferred in hemodynamically stable condition and was pain-free on the nitroglycerin drip and heparin drip. He went via ambulance with instrument mechanic weapons system crew on board. Discharge Instructions Activity:: Activity as Tolerated Diet:: Normal Diet Discharge Orders Discharge Orders: Discharge Order (Routine); Ordered 06/21/22 Ordered By: Khang Ng Discharge Data Discharge Date/Time-TO BE ENTERED AT DEPARTURE: 06/19/22 18:30 Discharge Comment: To [facility] via [employer] DS: Summary Time Spent with Patient providing and/or coordinating discharge services: Less than 30 minutes Status at Discharge Functional status at discharge: independent ambulation Overall status at discharge: patient is not back to baseline Mental Status: mental status grossly normal Speech and Movement: speech and movement normal Mood: congruent mood Affect: normal affect Exam Psych Mental Status: mental status grossly normal Speech and Movement: speech and movement normal Mood: congruent mood Affect: normal affect DS: Data Vitals/I&O Vitals and I&O: Vital Signs Temperature 37.6 C H 06/19/22 15:44 Temperature Source Tympanic 06/19/22 15:44 Pulse 64 06/19/22 18:13 Pulse 68 06/19/22 18:14 Respiratory Rate 15 06/19/22 18:14 Respiratory Effort 06/19/22 15:44 Respiratory Depth Normal 06/19/22 15:44 Respiratory Pattern Normal 06/19/22 15:44 Blood Pressure 115/70 06/19/22 18:13 Blood Pressure Mean 79 06/19/22 18:13 Blood Pressure Position Supine 06/19/22 15:44 Pulse Oximetry 97 06/19/22 18:13 Oxygen Delivery Method Room Air 06/19/22 15:44 Oxygen Flow Rate 0 06/19/22 15:44 Pain Level 1 06/19/22 18:10 PFSH All Active Problems Elevated CK (Acute) Elevated troponin I level (Acute) Chest pain (Acute) Medical History No significant past medical history Surgical History No significant past surgical history Family History Mother Atrial fibrillation Reportedly had genetic testing indicating she is a carrier for infiltrative cardiomyopathy Father No problems noted. Social History Smoking/Tobacco Use Status: Never Smoking risk assessment performed?: Yes Alcohol Intake: never Drug use: Never Substance use type: does not use Do you feel safe at home: Yes Do you feel safe in your relationship?: Yes
[2022-06-22 12:02] LABS: Myoglobin, U <15 mcg/L (<=65)
== END 2022-06-19 18:30 | disposition short-term general hospital (02) | DRG 282 ==
LOC: ER 08:06 → ICU 09:45
PROVIDERS: Admitting Provider Internal Medicine; Emergency Provider Emergency Medicine; PCP Nurse Practitioner; Visit Provider Internal Medicine
DX: I21.4 Non-ST elevation (NSTEMI) myocardial infarction (principal); R74.8 Abnormal levels of other serum enzymes
CPT/HCPCS: 36415; 71275; 80053; 82550; 85652; 87635; 93005; 93306; 96365; 96366; 96368; 96375; 96376; 99291; 71045; 81003; 83735; 83874; 83880; 84484; 85025; 85379; 85610; 85730; 86140; 93010; 99235; 99292; J2405